=== PATIENT | male | born 1960 | race Caucasian/White ===

== ENCOUNTER 2020-06-30 06:23 | Day surgery (SDC) | payer OTHER ==
[~2020-06-30] VITALS: Ht 177.8 cm; Wt 67.4 kg
[~2020-06-30 06:23] MED LIST: ASPI81CH; Aspir 8181 MG PO; Budeprion Xl300 MG PO; ERGO50000; HYDPAM25 PO; LAMICTAL ODT100 MG; RHINOCORT ALL8.43 M1
[2020-06-30] MEDS ORDERED: EUTHYROX50 MC1 PO (07:17)
[2020-06-30] MEDS ORDERED: PSEUDOEPHEDRINE30 M3 PO (07:17)
== END 2020-06-30 09:45 | disposition home or self-care (01) ==
LOC: ORSCSDS 06:23
PROVIDERS: Surgery
PROC: 0YU60JZ Supplement Left Inguinal Region with Synthetic Substitute, Open Approach (ICD-10-PCS; principal; 2020-06-30 07:30)
DX: K40.90 Unilateral inguinal hernia, without obstruction or gangrene, not specified as recurrent (principal); I10 Essential (primary) hypertension; E03.9 Hypothyroidism, unspecified; E78.5 Hyperlipidemia, unspecified; Z79.899 Other long term (current) drug therapy
CPT/HCPCS: A9270; C1781; J0690; J1100; J1885; J2405; J2704; J3010; J7120

== ENCOUNTER 2022-03-18 07:31 | Day surgery (SDC) | payer OTHER ==
[~2022-03-18] VITALS: Ht 177.8 cm; Wt 64.7 kg
[~2022-03-18 07:31] MED LIST changes: +DESV50 PO; +EUTHYROX50 MC1 PO; +PSEUDOEPHEDRINE30 M3 PO; +levoxyl PO
[2022-03-18] MEDS ORDERED: LEVSOD75 PO (08:00)
--- NOTE | 2022-03-18 08:01 | NUR ---
History, Chart, Medications and Allergies reviewed before start of procedure. Lungs clear T/O to Auscultation. Patient confirms NPO status and agrees with scheduled surgery. Patient states colon prep results clear. Pre-Op teaching done. Pt verbalizes understanding.
--- NOTE | 2022-03-18 08:50 | NUR ---
03/18/22 [id number] Demetrius Galvan HISTORY, CHART, MEDICATIONS AND ALLERGIES REVIEWED BEFORE START OF PROCEDURE. PATIENT CONFIRMS NPO STATUS AND AGREES WITH SCHEDULED PROCEDURE. 3-LEAD EKG REVIEWED WITH PHYSICIAN PRIOR TO START OF PROCEDURE. MONITOR INTACT WITH CONTINUOUS PULSE OXIMETRY,CAPNOGRAPHY, 3-LEAD EKG, INTERMITTENT BP. SUPPLEMENTAL O2 TO BE TITRATED THROUGHOUT PROCEDURE TO MAINTAIN O2 SATURATION ABOVE 90%. PATIENT DETERMINED TO BE ASA APPROPRIATE FOR PROPOFOL SEDATION PRIOR TO START OF PROCEDURE BY DR. HAAS.
--- NOTE | 2022-03-18 09:33 | NUR ---
Discharge instructions reviewed with patient. Patient verbalizes understanding. Copy given to patient to take home. Discharged via wheelchair to private car for ride home.
== END 2022-03-18 09:40 | disposition home or self-care (01) ==
LOC: ORSCMMR 07:31 → ORD 08:30 → ORSCMMR 09:40
PROVIDERS: Internal Medicine Gastroenterology
PROC: 0DBK8ZX Excision of Ascending Colon, Via Natural or Artificial Opening Endoscopic, Diagnostic (ICD-10-PCS; principal; 2022-03-18 08:30)
DX: Z12.11 Encounter for screening for malignant neoplasm of colon (principal); Z80.0 Family history of malignant neoplasm of digestive organs; D12.2 Benign neoplasm of ascending colon; K57.30 Diverticulosis of large intestine without perforation or abscess without bleeding; E03.9 Hypothyroidism, unspecified; F32.A Depression, unspecified; I10 Essential (primary) hypertension; Z79.899 Other long term (current) drug therapy
CPT/HCPCS: 88305; J2250; J2704; J7120

== ENCOUNTER 2023-05-26 13:57 | Emergency (ER) | payer OTHER ==
[~2023-05-26] VITALS: Ht 177.8 cm; Wt 68.0 kg
[~2023-05-26 13:57] MED LIST changes: +LEVSOD75 PO
[2023-05-26 14:30] LABS: BASOPHILS ABSOLUTE AUTO 0.02 K/mm3 (0.00-0.23); BASOPHILS PERCENT AUTO 0 % (0-2); EOSINOPHILS ABSOLUTE AUTO 0.02 K/mm3 (0.00-0.68); EOSINOPHILS PERCENT AUTO 0 % (0-6); Hematocrit 46.9 % (37.0-53.0); Hemoglobin 16.8 g/dL (13.5-17.5); IMMATURE GRAN ABSOLUTE AUTO 0.02 K/mm3 (0.00-0.10); IMMATURE GRAN PERCENT AUTO 0 % (0-1); LYMPHOCYTES ABSOLUTE AUTO 0.53 K/mm3 (0.84-5.20); LYMPHOCYTES PERCENT AUTO 9 % (21-46); MONOCYTES ABSOLUTE AUTO 0.76 K/mm3 (0.16-1.47); MONOCYTES PERCENT AUTO 13 % (4-13); Mean Corpuscular HGB 32.1 pg (26.0-34.0); Mean Corpuscular HGB Conc 35.8 g/dL (31.5-36.5); Mean Corpuscular Volume 90 fL (80-100); Mean Platelet Volume 9.4 fL (9.1-12.4); NEUTROPHILS ABSOLUTE AUTO 4.59 K/mm3 (1.96-9.15); NEUTROPHILS PERCENT AUTO 77 % (41-73); Platelet Count 205 K/mm3 (150-400); RDW Coefficient Variation 12.5 % (11.7-14.2); RDW Standard Deviation 41.1 fL (35.1-46.3); Red Blood Cell Count 5.23 M/mm3 (4.30-5.90); White Blood Cell Count 5.94 K/mm3 (4.00-11.30)
[2023-05-26 14:48] LABS: Albumin, Blood 4.5 g/dL (3.4-5.0); Albumin/Globulin Ratio 1.3 (0.8-1.8); Bilirubin, Total 1.1 mg/dL (0.1-1.0); Bun/Creatinine Ratio 16.1 (12.0-20.0); Calcium, Blood 9.4 mg/dL (8.5-10.1); Creatinine, Blood 0.68 mg/dL (0.60-1.20); Globulin, Blood 3.4 g/dL (2.2-4.0); Potassium, Blood 4.6 mmol/L (3.5-5.5); Total Protein, Blood 7.9 g/dL (6.4-8.2)
[2023-05-26] MEDS ORDERED: Prinivil10 MG PO (16:54)
[2023-05-26] MEDS ORDERED: DESVENLAFAXINE25 MG PO (16:54)
[2023-05-26] MEDS ORDERED: EUTHYROX25 MC1 PO (16:54)
[2023-05-26 19:10] VITALS: BP 147/88
== END 2023-05-26 19:14 | disposition home or self-care (01) ==
LOC: ER 13:57
PROVIDERS: Emergency Medicine
DX: R07.9 Chest pain, unspecified (principal); R06.02 Shortness of breath; Z95.1 Presence of aortocoronary bypass graft; Z87.891 Personal history of nicotine dependence; Z79.899 Other long term (current) drug therapy
CPT/HCPCS: 71046; 80053; 84484; 85025; 93005; 93010; 99285-25

== ENCOUNTER 2025-01-26 04:27 | Emergency (ER) | payer OTHER ==
[~2025-01-26] VITALS: Ht 182.9 cm; Wt 81.7 kg
[~2025-01-26 04:27] MED LIST changes: +DESVENLAFAXINE25 MG PO; +EUTHYROX25 MC1 PO; +Prinivil10 MG PO
[2025-01-26 05:05] LABS: BASOPHILS ABSOLUTE AUTO 0.05 K/mm3 (0.00-0.23); BASOPHILS PERCENT AUTO 1 % (0-2); EOSINOPHILS ABSOLUTE AUTO 0.12 K/mm3 (0.00-0.68); EOSINOPHILS PERCENT AUTO 2 % (0-6); Hematocrit 44.7 % (37.0-53.0); Hemoglobin 16.0 g/dL (13.5-17.5); IMMATURE GRAN ABSOLUTE AUTO 0.21 K/mm3 (0.00-0.10); IMMATURE GRAN PERCENT AUTO 3 % (0-1); LYMPHOCYTES ABSOLUTE AUTO 0.98 K/mm3 (0.84-5.20); LYMPHOCYTES PERCENT AUTO 15 % (21-46); MONOCYTES ABSOLUTE AUTO 0.86 K/mm3 (0.16-1.47); MONOCYTES PERCENT AUTO 13 % (4-13); Mean Corpuscular HGB Conc 35.8 g/dL (31.5-36.5); Mean Corpuscular Volume 90 fL (80-100); NEUTROPHILS ABSOLUTE AUTO 4.25 K/mm3 (1.96-9.15); NEUTROPHILS PERCENT AUTO 66 % (41-73); NRBC ABSOLUTE 0.00 K/mm3 (0.00-0.02); NRBC Auto 0.0 /100 WBC (0.0-0.2); Platelet Count 220 K/mm3 (150-400); RDW Coefficient Variation 12.6 % (11.7-14.2); RDW Standard Deviation 41.1 fL (35.1-46.3)
[2025-01-26] MEDS ORDERED: WATER FOR INJECTION STERILE IV ONE ×2 (05:25→05:40)
[2025-01-26] MEDS ORDERED: HUMAN PROTHROMBIN COMPLX IV ONE ×2 (05:25→05:40)
[2025-01-26 05:30] LABS: Alanine Aminotransfer (ALT/SGP 54.0 U/L (12-78); Albumin, Blood 3.4 g/dL (3.4-5.0); Albumin/Globulin Ratio 1.1 (0.8-1.8); Anion Gap 16.0 mmol/L (3-11); Aspartate Aminotrans (AST/SGOT 45.0 U/L (12-37); Bilirubin, Total 0.6 mg/dL (0.1-1.0); Blood Urea Nitrogen 7.0 mg/dL (8-24); CO2, Blood 18.0 mmol/L (21-32); Calcium, Blood 8.4 mg/dL (8.5-10.1); Chloride, Blood 96.0 mmol/L (98-108); Creatinine, Blood 0.71 mg/dL (0.60-1.20); Ethanol (Alcohol), Blood, Med 75.0 mg/dL; Globulin, Blood 3.2 g/dL (2.2-4.0); Glucose, Blood 94.0 mg/dL (70-99); Magnesium, Blood 2.2 mg/dL (1.6-2.4); Potassium, Blood 4.3 mmol/L (3.5-5.5); Sodium, Blood 126.0 mmol/L (136-145); Total Protein, Blood 6.6 g/dL (6.4-8.2)
[2025-01-26] MEDS ORDERED: FentaNYL Citrate 50 MCG/ML 2 ML Injection IV ONE (06:15)
[2025-01-26 06:29] VITALS: BP 122/89
== END 2025-01-26 06:46 | disposition short-term general hospital (02) ==
LOC: ER 04:27
PROVIDERS: Emergency Medicine
DX: I62.9 Nontraumatic intracranial hemorrhage, unspecified (principal); R56.9 Unspecified convulsions; Z79.899 Other long term (current) drug therapy; Z87.891 Personal history of nicotine dependence
CPT/HCPCS: 70450; 72125; 80053; 80320; 83605; 83735; 84484; 85025; 93005; 93010; 96374; 96375; 99285-25; J1953; J3010; J7168

== ENCOUNTER → 2025-04-06 | Outpatient (CLI) | payer OTHER ==
[2025-04-06 18:53] LABS: BASOPHILS ABSOLUTE AUTO 0.06 K/mm3 (0.00-0.23); BASOPHILS PERCENT AUTO 1 % (0-2); EOSINOPHILS ABSOLUTE AUTO 0.29 K/mm3 (0.00-0.68); EOSINOPHILS PERCENT AUTO 5 % (0-6); Hematocrit 45.5 % (37.0-53.0); Hemoglobin 16.1 g/dL (13.5-17.5); IMMATURE GRAN ABSOLUTE AUTO 0.02 K/mm3 (0.00-0.10); IMMATURE GRAN PERCENT AUTO 0 % (0-1); LYMPHOCYTES ABSOLUTE AUTO 1.12 K/mm3 (0.84-5.20); LYMPHOCYTES PERCENT AUTO 19 % (21-46); MONOCYTES ABSOLUTE AUTO 0.79 K/mm3 (0.16-1.47); MONOCYTES PERCENT AUTO 14 % (4-13); Mean Corpuscular HGB Conc 35.4 g/dL (31.5-36.5); Mean Corpuscular Volume 88 fL (80-100); NEUTROPHILS ABSOLUTE AUTO 3.48 K/mm3 (1.96-9.15); NEUTROPHILS PERCENT AUTO 61 % (41-73); NRBC ABSOLUTE 0.00 K/mm3 (0.00-0.02); NRBC Auto 0.0 /100 WBC (0.0-0.2); Platelet Count 265 K/mm3 (150-400); RDW Coefficient Variation 13.6 % (11.7-14.2); RDW Standard Deviation 44.0 fL (35.1-46.3)
[2025-04-06 18:54] LABS: Alanine Aminotransfer (ALT/SGP 24.0 U/L (12-78); Albumin, Blood 3.8 g/dL (3.4-5.0); Albumin/Globulin Ratio 1.0 (0.8-1.8); Anion Gap 11.0 mmol/L (3-11); Aspartate Aminotrans (AST/SGOT 12.0 U/L (12-37); Bilirubin, Total 0.5 mg/dL (0.1-1.0); Blood Urea Nitrogen 6.0 mg/dL (8-24); CO2, Blood 22.0 mmol/L (21-32); Calcium, Blood 9.0 mg/dL (8.5-10.1); Chloride, Blood 100.0 mmol/L (98-108); Creatinine, Blood 0.74 mg/dL (0.60-1.20); Globulin, Blood 3.7 g/dL (2.2-4.0); Glucose, Blood 99.0 mg/dL (70-99); Potassium, Blood 4.3 mmol/L (3.5-5.5); Sodium, Blood 129.0 mmol/L (136-145); Thyroid Stimulating Hormone 6.07 uIU/mL (0.360-4.800); Total Protein, Blood 7.5 g/dL (6.4-8.2)
== END ==
LOC: LAB SHORT 17:30 → LAB 17:30
PROVIDERS: Nurse Practitioner
DX: R06.02 Shortness of breath (principal); R60.0 Localized edema; Z95.2 Presence of prosthetic heart valve; Z95.1 Presence of aortocoronary bypass graft; Z86.39 Personal history of other endocrine, nutritional and metabolic disease
CPT/HCPCS: 80053; 84443; 84484; 85025